=== PATIENT | female | born 1960 | race Caucasian/White ===

== ENCOUNTER 2018-02-08 09:44 | Observation (INO) ==
[2018-02-08] MEDS ORDERED: Iohexol 350 MG/ML 50 ML Vial (for Cath Lab) IVCONTRAST ONE (09:45)
[2018-02-08 10:44] LABS: Baso # (Auto) 0.1 th/mm3 (0.0-0.2); Baso % (Auto) 0.7 % (0.0-2.0); Eos # (Auto) 0.2 th/mm3 (0.0-0.4); Eos % (Auto) 2.3 % (0.0-4.0); Hematocrit 43.5 % (35.0-46.0); Hemoglobin 14.7 gm/dL (11.6-15.3); Lymph # (Auto) 1.1 th/mm3 (1.0-4.8); Lymph % (Auto) 12.9 % (9.0-44.0); Mean Corpuscular HGB Conc 33.8 % (32.0-36.0); Mean Corpuscular Hemoglobin 29.1 pg (27.0-34.0); Mean Platelet Volume 8.5 fL (7.0-11.0); Mono # (Auto) 0.7 th/mm3 (0.0-0.9); Mono % (Auto) 7.9 % (0.0-8.0); Neut # (Auto) 6.5 th/mm3 (1.8-7.7); Neut % (Auto) 76.2 % (16.0-70.0); Platelet Count 313 th/mm3 (150-450); Red Blood Count 5.05 mil/mm3 (4.00-5.30); Red Cell Distribution Width 13.3 % (11.6-17.2); White Blood Count 8.5 th/mm3 (4.0-11.0)
[2018-02-08 10:53] LABS: Activated Partial Thrombo Time 27.6 sec (24.3-30.1); INR 1.1 Ratio; Prothrombin Time 10.8 sec (9.8-11.6)
[2018-02-08 11:20] LABS: Calcium 9.4 mg/dL (8.5-10.1); Carbon Dioxide 24.4 meq/L (21.0-32.0); Potassium 3.7 meq/L (3.5-5.1)
[2018-02-08] MEDS ORDERED: Heparin/NS PF Inj 500 ML ONE (12:52)
[2018-02-08] MEDS ORDERED: Heparin 10,000 UNITS/10 ML Vial (for IV use) ONE (12:53)
[2018-02-08] MEDS ORDERED: Lidocaine PF 1% Inj 30 ML Vial ONE (13:08)
--- NOTE | 2018-02-08 13:56 | CATHPROC ---
dELiAs HIS Report Study Information Study Number Admission Scheduled Start Study Start [id number] Feb 08 2018 9:44AM 02/08/2018 Feb 08 2018 12:52PM [place] [facility] Cardiac Catheterization Admit Source Facility Department Other [facility] [employer] Physician and Clinical Staff Initial MD Gutierrez, Layla Consulting Psychiatrist Nely Lopez RN Other cathlab, cathlab Recorder Temitope Cloud,GEAR FINISHER TECH2 Scrub Julieth Paz,RT(R) (BS) Procedures Performed Procedure Location (Site) Vessel Name Coronary Angiograms LCA Left Coronary Coronary Angiograms RCA Right Coronary L Heart Cath LV Gram-hand inj. LV LV Ventricle Equipment Time Air Tube Releaser Description Size Mfg Part Number Used/Scraped TRANSDUCER, TRUWAVE [id number] 13:02 COBOS LAY * Used W/STOCKCOCK *[id number] 13:02 [employer] BLANKET,WARM AIR CCL * Used *[id number] 13:02 [employer] PACK, CCL CUSTOM * Used *[id number] 13:02 [employer] SUPPORT, ARTERIAL ADULT [id number] *[id number] Used [id number] 13:02 Ketto PACER PEN, SKIN DUAL W/ RULER * Used *[id number] BAND, RADIAL COMPRESSION TR [id number] 13:47 [employer] [place] MEDICAL 24CM Used SHORT 24 *[id number] 13:37 [employer] [place] MEDICAL WIRE, EXCHANGE 260CM 3MMJ 260CM Used *[id number] 13:02 [employer] [place] MEDICAL WIRE, EXCHANGE 260CM 3MMJ 260CM Used *[id number] 13:02 NAMIC MANIFOLD, 4 PORT * Used *[id number] 13:02 NAMIC TUBING, HIGH PRESSURE 20" 20" Used *[id number] 13:02 [employer]COMED OMNIPAQUE, 350 MG, 150ML 150ML [id number] Used CATHETER, FR5 OPTITORQUE [id number] 13:19 [employer] FR 5 Used RADIAL TIG 4.0 *[id number] CATHETER, FR5 OPTITORQUE [id number] 13:38 [employer] FR 5 Used RADIAL TIG 4.0 *[id number] SHEATH, FR6 TRANSRADIAL [id number] 13:02 [employer] FR 6 Used SLENDER 10CM *[id number] Equipment Model, Serial, Lot Number and Expiration Data Description Model Number Serial Number Lot Number Expiration Date WIRE, EXCHANGE 260CM 3MMJ [id number] 12-03-2020 History: Current Medications Medication Dosage/Unit Route Frequency Last Date/Time Taken Glucophage LOPRESSOR ASA History: Allergies Allergy Reaction No Known Allergies History: Risk Factors Family History of Hypertension Dyslipidemia Previous ME Previous Heart Failure Premature CAD Yes Yes Yes No No Prior Valve Prior PCI Prior CABG Surgery No No No Cerebrovascular Peripheral Artery Chronic Lung On Dialysis Diabetes Diabetes Therapy Disease Disease Disease No No No No Yes Oral History: Stress Tests Stress or Imaging Studies Performed Yes Standard Exercise Stress Test No Stress Echo No Stress Test SPECT No Stress Test CMR Stress Test CMR Result Stress Test CMR Ischemia Risk/Extent Yes Positive Intermediate Cardiac CTA Coronary Calcium Score No No History: Other Disease Selection Items HTN History: Other Current Smoker No Labs Hgb (g/dl) Hct (%) WBC (l/cumm) Platelets (thousands) 11.60-17.00 35.00-51.00 4.00-11.00 150.00-450.00 14.7 43.5 8.5 313 Glucose (mg/dl) Creatinine (mg/dl) 74.00-106.00 0.50-1.30 107 0.9 Na (meq/l) K (meq/l) 136.00-145.00 3.50-5.10 143 3.7 INR (PTT:PT) 0.90-1.10 1.1 Medication Medication Total Dose (Bolus/Oral) Medication Total Dosage/Unit 1% XYLOCAINE 20 mL RADIAL COCKTAIL 5 mL (Bolus) VERSED 1 mg Medications (Bolus/Oral) Medication Time Given Dosage/Unit Administered By Reason 1% XYLOCAINE 02/08/2018 1:32:49 PM 20 mL Layla Gutierrez 20 mL 1% XYLOCAINE given in lab by Layla Gutierrez in Right Radial via Subcutaneous. Ordered by Layla Gutierrez. VERSED 02/08/2018 1:33:00 PM 1 mg Nely Lopez 1 mg VERSED given in lab by Nely Lopez, RN via Peripheral IV. Ordered by Layla Gutierrez. Ntg 300mcg Verapamil 2.5mg Heparin RADIAL COCKTAIL 02/08/2018 1:33:17 PM 5 mL (Bolus) Layla Gutierrez 2500U 5 mL (Bolus) RADIAL COCKTAIL given in lab by Layla Gutierrez in Right Radial via Radial. Using [Solutio n Name]. Ordered by Layla Gutierrez. Reason: Ntg 300mcg Verapamil 2.5mg Heparin 2500U. Medication (Drip) Medication Time Given Dosage/Unit Concentration/Unit Diluent (ml) Solutio n IV Solutions 02/08/2018 12:59:43 PM 0 mL (IV) 500 NaCl .9 IV Solutions given in lab by Nely Lopez RN in Left Antecubital via Peripheral IV. Pump/Drip Arsenio w = 20 ml/hr using NaCl .9. Ordered by Layla Gutierrez. Initial Case Assessment Cardiovascular HR NIBP 72 147/62 Edema Present Skin color Skin None Normal Warm Dry Circulatory - Right Pulses Dorsalis Pedis Femoral Radial 1 1 2 Scale (0,1,2,3,4,d) Circulatory - Left Pulses Dorsalis Pedis Femoral Radial 2 1 Scale (0,1,2,3,4,d) Neurological State Oriented to time-place- Alert Moves all extremities person Respiration - General Respiration Rate SpO2 (%) (B/min) 14 99 Final Case Assessment Cardiovascular HR NIBP 66 120/62 Edema Present Skin color Skin None Normal Warm Dry Circulatory - Right Pulses Dorsalis Pedis Femoral Radial 1 1 2 Scale (0,1,2,3,4,d) Circulatory - Left Pulses Dorsalis Pedis Femoral Radial 2 1 Scale (0,1,2,3,4,d) Neurological State Oriented to time-place- Alert Moves all extremities person Respiration - General Respiration Rate SpO2 (%) (B/min) 15 97 Chronological Log Time Study Chronological Log 12:51:55 Patient arrived via Bed. 12:51:56 Patient Name, D.O.B, / Armband Verified By R.N. 12:51:57 Consent signed by the physician and the patient and verified by the [employer] staff. 12:51:59 Pre-op and post- op instructions given; patient acknowledges understanding of instructions. Vitals capture started with the following parameters, Patient=Adult, Interval=5 min, Initial Pr xplbwz=862 mmHg, 12:59:28 Deflation Rate=5 mmHg, Cuff placed on Left Arm 12:59:33 Allens test performed on the right radial and ulnar artery. 12:59:34 Patient has been NPO for More than 6Hrs. 12:59:35 Skin Breakdown- 12:59:37 Patient Warmer Placed on the Table. 12:59:38 Jesse Prominences Protected 12:59:42 A # 20 IV was noted in the Antecubital (left). Grade = 0 IV Solutions given in lab by Nely Lopez, RN in Left Antecubital via Peripheral IV. Pump/Dr ip Flow = 20 ml/hr using 12:59:43 NaCl .9. Ordered by Layla Gutierrez. 12:59:44 History and physical on the chart or being dictated. 13:00:29 Reference ECG taken 13:00:47 HR=72 bpm, ENPV=206/62 mmhg, SpO2=99.0 %, Resp=14 B/min, Pain=0, Elsa=10, Lane=2 Assessment: Initial Case, HR=72 BPM, ODSQ=134/62 mmhg, Edema=None, Color=Normal, Skin = Warm, D ry Right Pulses: Ottoniel Ped=1, Femoral=1, Radial=2 13:02:26 Left Pulses: Ottoniel Ped=2, Femoral=1 Neurological: State=Alert, Ox3, MANZANO Respiration: Resp=14 B/min, SpO2=99 % 13:05:15 HR=69 bpm, ZIDY=480/64 mmhg, SpO2=98.0 %, Resp=14 B/min, Pain=0, Elsa=10, Lane=2 13:10:12 HR=74 bpm, AYPR=900/65 mmhg, SpO2=97.0 %, Resp=15 B/min, Pain=0, Elsa=10, Lane=2 13:10:21 Right Radial and groin(s) prepped with 2% chlorhexidine, and draped after a 3 min. waiting time. 13:15:13 HR=68 bpm, LPBG=912/66 mmhg, SpO2=98.0 %, Resp=13 B/min, Pain=0, Elsa=10, Lane=2 13:16:13 Pressure channel 1 zeroed. 13:20:16 HR=67 bpm, YLEG=477/63 mmhg, SpO2=97.0 %, Resp=15 B/min, Pain=0, Elsa=10, Lane=2 13:25:15 HR=71 bpm, YOHX=815/59 mmhg, SpO2=96.0 %, Pain=0, Elsa=10, Lane=2 13:30:16 HR=69 bpm, VIWU=493/57 mmhg, SpO2=96.0 %, Pain=0, Elsa=10, Lane=2 Time Out. Correct patient, correct procedure, correct physician, labs, allergies, and equipment verified with wheelabrator operator 13:31:56 team present. Fire risk assesment completed (see hard stop sheet for coding). Time Out Conc urred by MD and individual staff in procedure. 13:31:58 Case Start 13:32:49 20 mL 1% XYLOCAINE given in lab by Layla Gutierrez in Right Radial via Subcutaneous. Ordered by Layla Gutierrez. 13:33:00 1 mg VERSED given in lab by Nely Lopez RN via Peripheral IV. Ordered by Layla Gutierrez . A SHEATH, FR6 TRANSRADIAL SLENDER 10CM FR 6 was advanced into the Radial (right) using the Benny fied Seldinger 13:33:04 technique. 5 mL (Bolus) RADIAL COCKTAIL given in lab by Layla Gutierrez in Right Radial via Radial. Using [S olution Name]. Ordered 13:33:17 by Layla Gutierrez. Reason: Ntg 300mcg Verapamil 2.5mg Heparin 2500U. A CATHETER, FR5 OPTITORQUE RADIAL TIG 4.0 FR 5 was advanced over a wire. OMNIPAQUE, 350 MG, 150 ML 150ML 13:34:00 was used for injections. 13:35:13 HR=83 bpm, GHAO=711/70 mmhg, SpO2=98.0 %, Pain=0, Elsa=10, Lane=2 Recorded Pressure: LV, HR=81, Condition=Condition 1 13:38:51 (Left Ventricle) LV 131/1/7 13:38:55 The LV was manually injected with 10 cc's and visualized. OMNIPAQUE, 350 MG, 150ML 150ML us ed. Recorded Pressure: LV, Ao, HR=79, Condition=Condition 1 13:39:18 (Left Ventricle) LV 128/6/10, (Aorta) Ao 124/63/87 13:40:16 HR=72 bpm, WIHK=967/61 mmhg, SpO2=94.0 %, Resp=13 B/min, Pain=0, Elsa=10, Lane=2 Recorded Pressure: Ao, HR=75, Condition=Condition 1 13:40:21 (Aorta) Ao 114/60/83 13:40:35 The LCA was injected and visualized at various angles. OMNIPAQUE, 350 MG, 150ML 150ML used . 13:42:38 The RCA was injected and visualized at various angles. OMNIPAQUE, 350 MG, 150ML 150ML used . 13:43:03 Catheter was removed 13:43:13 Case End (Physician broke scrub) 13:43:22 Catheter(s) removed without difficulty 13:45:13 HR=72 bpm, NKZV=111/53 mmhg, SpO2=94.0 %, Resp=15 B/min, Pain=0, Elsa=10, Lane=2 Radial Compression Device Used. 13 mLs of air placed in BAND, RADIAL COMPRESSION TR SHORT 24 24 CM. Affected 13:46:55 hand 95 % O2 saturation. 13:47:27 No case complications noted. 13:47:28 Cine recording checked. 13:47:34 A Left Heart Cath was performed. 13:50:12 HR=66 bpm, KQHD=928/62 mmhg, SpO2=94.0 %, Resp=15 B/min, Pain=0, Elsa=10, Lane=2 13:50:25 Vitals capture stopped. Assessment: Final Case, HR=66 BPM, TOJJ=435/62 mmhg, Edema=None, Color=Normal, Skin = Warm, Dr y Right Pulses: Ottoniel Ped=1, Femoral=1, Radial=2 13:50:39 Left Pulses: Ottoniel Ped=2, Femoral=1 Neurological: State=Alert, Ox3, MANZANO Respiration: Resp=15 B/min, SpO2=97 % 13:51:41 Patient moved to [facility] End Study - Contrast Media Used In Study Contrast Total Opened (mL) Total Used (mL) Total Wasted (mL) Omnipaque 35 35 0 End Study - Maximum Contrast Load Max Contrast Load (mL) 422.2 End Study - Radiation Exposure Fluoro Time (minutes) 3.1 End Study - Patient Disposition Complications Transferred To Telemetry Bed
[2018-02-08] MEDS ORDERED: Sod Chloride 0.9% Inj 400 ML IV.CONT SCH (14:00)
--- NOTE | 2018-02-08 14:15 | MA ---
cc: Layla Gutierrez MD DATE: 02/08/2018 INDICATIONS FOR PROCEDURE: This is a 57-year-old female with chest pain, positive stress test for ischemia. PROCEDURES PERFORMED: Left heart catheterization, angiogram, left ventriculogram. PROCEDURE: After obtaining informed consent, with the patient in the fasting state, was brought to the catheterization lab. The right radial area was sterilized and draped with sterile drapes. 1% Xylocaine was used to anesthetize the area. A 6-Honduran sheath was used to access the right radial artery. Braggs catheter used to intubate left main and to intubate right coronary artery. Performed left ventriculogram and pressure measurements. At the end of the procedure, sheath taken out and TR band was applied. She was sent back to her room in stable condition. No complications. CORONARY ANGIOGRAM: Left main coronary artery is a medium-sized vessel. Takeoff is abnormal and going down and possibly anterior. There is a long, bifurcating LAD and left circumflex artery. Left main has no significant disease. Left anterior descending coronary artery and its branches have no significant disease. Left circumflex coronary artery and its branches have no significant disease. Right coronary artery is dominant, tortuous in the mid segment. No significant disease. LEFT VENTRICULOGRAM: Ejection fraction estimated to be 55%. No pressure gradient across the aortic valve. Left ventricular end diastolic pressure 14. Aortic pressure 130/70. Medical management to continue. Sent back to her room in stable condition. No complications. POSTOPERATIVE DIAGNOSIS: Chest pain with no significant coronary artery disease. Layla Gutierrez MD FABIEN/TL , 01:48 PM , 02:01 PM
--- NOTE | 2018-02-09 07:32 | ECG ---
Date Performed: 02/08/2018 Time Performed: 10:24:18 PTAGE: 57 years EKG: Sinus rhythm . Extensive ST-T changes may be due to myocardial ischemia Low QRS voltages in precordial leads Abnor mal ECG NO PREVIOUS TRACING DOCTOR: Tiffanie gAee Interpretating Date/Time 02/09/2018 07:29:49
== END 2018-02-08 17:19 | disposition home or self-care (01) ==
LOC: HDIC 09:44 → HCAT 09:44 → HDIC 09:46
PROVIDERS: ADMIT Internal Medicine Cardiovascular Disease; ATTEND Internal Medicine Cardiovascular Disease